=== PATIENT | female | born 1955 | race Caucasian/White ===

== ENCOUNTER 2017-07-09 16:53 | Inpatient (IN) | payer OTHER ==
[~2017-07-09] VITALS: Ht 157.5 cm; Wt 70.3 kg
[~2017-07-09 16:53] MED LIST: DIOVAN40 MG; SYNTHROID75 MCG
== END 2017-07-14 09:17 | disposition home or self-care (01) | DRG 392 ==
LOC: ER 16:53 → SEC-K 07-10 11:20 → SURH 07-10 17:37
DX: K57.32 Diverticulitis of large intestine without perforation or abscess without bleeding (principal)

== ENCOUNTER 2018-02-02 07:15 | Inpatient (IN) | payer OTHER ==
[~2018-02-02] VITALS: Ht 157.5 cm; Wt 66.2 kg
[2018-02-02] MEDS ORDERED: LOSARTA PO (08:32)
[2018-02-02] MEDS ORDERED: SYNTHROID50 MCG PO (08:32)
[2018-02-02] MEDS ORDERED: CRESTOR20 MG PO (08:32)
== END 2018-02-26 17:40 | disposition home or self-care (01) | DRG 329 ==
LOC: SURG 02-05 05:30 → O/R 02-05 05:30 → SURH 02-05 07:00 → SURG 02-05 14:06
PROVIDERS: Colon & Rectal Surgery
PROC: 0DJD8ZZ Inspection of Lower Intestinal Tract, Via Natural or Artificial Opening Endoscopic (ICD-10-PCS; 2018-02-05)
PROC: 4A1BXSH Monitoring of Gastrointestinal Vascular Perfusion using Indocyanine Green Dye, External Approach (ICD-10-PCS; 2018-02-05)
PROC: 0DTN4ZZ Resection of Sigmoid Colon, Percutaneous Endoscopic Approach (ICD-10-PCS; principal; 2018-02-05 07:00)
PROC: BT43ZZZ Ultrasonography of Bilateral Kidneys (ICD-10-PCS; 2018-02-06)
PROC: BW25Y0Z Computerized Tomography (CT Scan) of Chest, Abdomen and Pelvis using Other Contrast, Unenhanced and Enhanced (ICD-10-PCS; 2018-02-09)
PROC: 02HV33Z Insertion of Infusion Device into Superior Vena Cava, Percutaneous Approach (ICD-10-PCS; 2018-02-10)
PROC: 3E0436Z Introduction of Nutritional Substance into Central Vein, Percutaneous Approach (ICD-10-PCS; 2018-02-10)
PROC: BW2GYZZ Computerized Tomography (CT Scan) of Pelvic Region using Other Contrast (ICD-10-PCS; 2018-02-15)
PROC: B54DZZZ Ultrasonography of Bilateral Lower Extremity Veins (ICD-10-PCS; 2018-02-17)
PROC: BW2GYZZ Computerized Tomography (CT Scan) of Pelvic Region using Other Contrast (ICD-10-PCS; 2018-02-22)
PROC: BU1 Imaging, Female Reproductive System, Fluoroscopy (ICD-10-PCS; 2018-02-24)
DX: K57.32 Diverticulitis of large intestine without perforation or abscess without bleeding (principal); K65.1 Peritoneal abscess; K63.1 Perforation of intestine (nontraumatic); N17.8 Other acute kidney failure; K91.89 Other postprocedural complications and disorders of digestive system; T81.4XXA Infection following a procedure, initial encounter; N99.0 Postprocedural (acute) (chronic) kidney failure; I10 Essential (primary) hypertension; E03.8 Other specified hypothyroidism; E87.6 Hypokalemia; I87.2 Venous insufficiency (chronic) (peripheral)

== ENCOUNTER 2023-05-08 07:14 | Emergency (ER) | payer OTHER ==
[~2023-05-08] VITALS: Ht 157.5 cm; Wt 75.7 kg
[~2023-05-08 07:14] MED LIST changes: +CRESTOR20 MG PO; +LOSARTA PO; +SYNTHROID50 MCG PO
== END 2023-05-08 11:25 | disposition home or self-care (01) ==
LOC: ER 07:14
DX: M54.50 Low back pain, unspecified (principal); I10 Essential (primary) hypertension; E03.9 Hypothyroidism, unspecified; Z88.6 Allergy status to analgesic agent; Z88.8 Allergy status to other drugs, medicaments and biological substances
CPT/HCPCS: 72100; 96365; 96372; 99284; J1100; J2360

== ENCOUNTER 2023-09-20 14:19 | Emergency (ER) | payer OTHER ==
[~2023-09-20] VITALS: Ht 157.5 cm; Wt 74.8 kg
[2023-09-20] MEDS ORDERED: DEXAMETHASONE SODIUM PHOSPHATE 4 MG/ML VIAL IM ONE (19:45)
[2023-09-20] MEDS ORDERED: ORPHENADRINE CITRATE 30 MG/ML AMPUL IM ONE (19:45)
[2023-09-20] MEDS ORDERED: MEDROLPACK PO (21:39)
[2023-09-20] MEDS ORDERED: NORFLEX100MG PO (21:39)
[2023-09-20] MEDS ORDERED: MEPERIDINE HCL/PF 50 MG/ML VIAL IM ONE (22:00)
[2023-09-20] MEDS ORDERED: OxyCODONE HCL/APAP UD (PERCOCET) PO ONE (22:45)
== END 2023-09-20 23:00 ==
LOC: ER 14:20
DX: M54.50 Low back pain, unspecified (principal); E03.9 Hypothyroidism, unspecified; I10 Essential (primary) hypertension; E78.49 Other hyperlipidemia; M51.36 Other intervertebral disc degeneration, lumbar region; K57.32 Diverticulitis of large intestine without perforation or abscess without bleeding; Z88.6 Allergy status to analgesic agent
CPT/HCPCS: 72100; 96372; 99283; J1100; J2360; J3490